=== PATIENT | male | born 1985 | race Caucasian/White ===

== ENCOUNTER → 2018-12-16 08:59 | Outpatient (CLI) | payer MEDICAID, SELFPAY ==
[2018-12-16 10:08] LABS: Glucose 75GTT - Fasting 97 mg/dL (70-99)
[2018-12-16 10:15] LABS: Vitamin D,25 Hydroxy 32.4 ng/mL (29.95-100.01)
[2018-12-16 10:16] LABS: Ferritin 101 ng/mL (26-388); T4 Free Direct 0.94 ng/dL (0.76-1.46); Thyroid Stim Hormone (TSH) 2.74 uIU/mL (0.358-3.74)
[2018-12-16 10:24] LABS: Insulin 75GTT - Fasting 9.8 mU/L (2.6-37.6)
[2018-12-16 11:10] LABS: Glucose 75GTT - 30 minutes 138 mg/dL (100-160)
[2018-12-16 11:12] LABS: Glucose 75GTT - 60 minutes 132 mg/dL (100-160)
[2018-12-16 11:16] LABS: Insulin 75GTT - 60 min 70.4 mU/L (Not Estab)
[2018-12-16 11:18] LABS: Insulin 75GTT - 30 MIN 63.4 mU/L (Not Estab.)
[2018-12-16 12:13] LABS: Glucose 75GTT - 120 minutes 121 mg/dL (70-140)
[2018-12-16 12:18] LABS: Insulin 75GTT - 120 min 41.6 mU/L (Not Estab.)
[2018-12-17 09:26] LABS: Sex Hormone-binding Globulin 20.8 nmol/L (16.5-55.9)
== END ==
PROVIDERS: Family Provider Family Medicine; PCP Family Medicine; Referring Provider Obstetrics & Gynecology; Visit Provider Obstetrics & Gynecology
DX: E29.1 Testicular hypofunction (principal)
CPT/HCPCS: 36415; 82306; 82533; 82728; 82951; 82952; 83525; 84146; 84270; 84403; 84439; 84443

== ENCOUNTER → 2019-01-13 15:51 | Outpatient (CLI) | payer MEDICAID, SELFPAY ==
[2019-01-13 17:08] LABS: Hematocrit 38.7 % (40-54); Hemoglobin 12.9 g/dL (13.0-16.5); Mean Corp Hgb Conc 33.3 g/dL (32-36); Mean Corpuscular Hgb 29.6 pg (27.0-32.0); Mean Corpuscular Volume 88.8 fL (80-94); Platelet Count 212 K/mm3 (150-450); RBC Distribution Width CV 12.9 % (11.6-14.6); Red Blood Count 4.36 M/mm3 (4.6-6.2); White Blood Count 7.5 K/mm3 (4.4-11.0)
[2019-01-13 17:19] LABS: Estradiol 22.8 pg/mL
[2019-01-14 10:23] LABS: Absolute Lymphocyte Count 2.07 X10^3/uL (0.83-4.51); Absolute Neutrophil Count 4.6 X10^3/uL (2.0-7.7); Basophil# 0.03 X10^3/uL; Basophil% 0.4 % (0-1); Eosinophil# 0.14 X10^3/uL; Eosinophils% 1.9 % (0-5); Lymphocyte # 2.07 X10^3/ul (4.0); Lymphocyte % 27.8 % (19-41); Monocyte# 0.64 X10^3/uL; Monocyte% 8.6 % (0-10); NRBC Flagged by Analyzer 0 % (0-5); Neutrophil # 4.55 X10^3/uL (2.7-7.7)
[2019-01-14 16:13] LABS: ALB/GLOB Ratio 1.3 RATIO (0.9-2.4); AST(SGOT) 27 U/L (15-37); Alanine Aminotransfer ALT/SGPT 27 U/L (16-61); Albumin, Serum 3.9 g/dL (3.2-5.0); Alkaline Phosphatase 52 U/L (45-117); Anion Gap 2 (5-15); BUN 16 mg/dL (7-18); Calcium,Total 8.7 mg/dL (8.5-10.1); Chloride 109 mmol/L (98-107); Creatinine, Serum 1.07 mg/dL (0.70-1.30); EST Glomerular Filtration Rate 84 mL/min (>60); Est Glom Filt Rate - Afr Amer 101 mL/min (>60); Globulin 3.1 g/dL (2.2-4.2); Glucose 93 mg/dL (74-106); Sodium Level 140 mmol/L (136-145)
== END ==
PROVIDERS: Visit Provider Obstetrics & Gynecology
DX: E29.1 Testicular hypofunction (principal)
CPT/HCPCS: 36415; 80053; 82670; 85025; 85027

== ENCOUNTER → 2020-03-24 09:40 | Outpatient (CLI) | payer MEDICAID, SELFPAY ==
[2020-03-22 18:12] LABS: BUN 17 mg/dL (7-18); Creatinine, Serum 1.05 mg/dL (0.70-1.30); EST Glomerular Filtration Rate 85 mL/min (>60); Est Glom Filt Rate - Afr Amer 103 mL/min (>60)
--- NOTE | 2020-03-24 09:46 | MRI_ITS ---
STUDY: MRI BRAIN WITH AND WITHOUT CONTRAST (ATTENTION INTERNAL AUDITORY CANALS - I.A.C.''s) REASON FOR EXAM: Male, 35 years old. hearing loss right ear, tinnitus TECHNIQUE: Standardized multiplanar fat and water weighted pulse sequences were obtained. IV 17ml Dotarem was administered for the contrast portion of the examination. COMPARISON: None. FINDINGS: Normal bilateral temporal bones. Normal bilateral internal auditory canals. 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 Differential diagnosis includes vestibular schwannoma, meningioma ependymoma. Hhere is no enhancement of the bilateral VIIth or VIIIth cranial nerves. Normal bilateral cochlea, vestibules and semicircular canals. Normal size of the ventricles and extra-axial spaces for the patient''s age. Normal white matter tracts of the supratentorial brain. There is no evidence for recent intracranial ischemia or other cause of cytotoxic edema on diffusion weighted imaging (DWI). Normal bilateral basal ganglia. Normal thalami. Normal flow voids within the major intracranial circulation suggesting patency by spin echo criteria. Normal venous enhancement. There is no enhancing intra-axial or extra-axial abnormality. There is no extra-axial fluid accumulation. Normal sella turcica, pituitary gland, infundibular stalk, optic chiasm and hypothalamus. Normal tectal plate and pineal gland. Normal midbrain, romel and medulla. Normal cerebellum. Normal basal cisterns. No demonstrated orbital abnormality, within the constraints of a routine brain study. Normal visualized paranasal sinuses. Normal calvarium and skull base. Normal visualized soft tissue structures. Normal visualized upper cervical spine. 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 An with mass effect on the right hemisphere of the cerebellum, right side of the brainstem including the origin of the right 5th cranial nerves. Differential diagnosis includes vestibular schwannoma (acoustic neuroma), meningioma, or ependymoma. Electronically Signed: Inocente Palacios MD at 11:42 EDT Tel , Service support ,
== END ==
PROVIDERS: PCP Family Medicine; Referring Provider Otolaryngology; Visit Provider Otolaryngology
DX: H90.41 Sensorineural hearing loss, unilateral, right ear, with unrestricted hearing on the contralateral side (principal)
CPT/HCPCS: 36415; 70553; 82565; 84520; A9575

== ENCOUNTER → 2020-05-30 17:24 | Outpatient (CLI) | payer MEDICAID, SELFPAY | PROVIDERS: PCP Family Medicine | DX: Z01.818 Encounter for other preprocedural examination (principal) | CPT/HCPCS: 87635; C9803; U0005; U0003 ==

== ENCOUNTER 2020-06-21 15:28 | Outpatient (RCR) | payer MEDICAID, SELFPAY ==
--- NOTE | 2020-06-21 16:20 | HP.PTEVAL ---
Patient's Visit Information YANELY EVERETT II is a 35 year old M referred to Physical Therapy by SAAD ANDERSON with a diagnosis of Vestibular Schwannoma removal. Date of Evaluation: 06/21/20 Physical Therapist: Lonny Mcgraw, NIKKO, OCS, CSCS - Visit Plan Frequency: 1x/Week Duration: 4 Weeks Plan: weekly as needed x4 for. 1. habituationa nd adaptation ex progression. 2. Functional ex progression(head movements with bending for work. Next session: likely VOR x2 progression to busy visual environment and functional balance with head mvoements(burpees) - Subjective Had a auditory removed on June 06. Due to mouth pain and ringing in ears, lethargy. Since then has some slight dizzyness and unsteadiness. No falls. No AD needed. No other symptoms anymore. Has deafness in R ear from the surgery. Just some pressure adn mild S[place]O intermittently more at night when he gets tired. Not sleeping great, hard time falling asleep. Dizzyness comes adn goes with head movements especially rapid. 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 Doing basic ADLs without much problem. Has baby that he is avoiding at times due to incision in tummy to graft to removal site adn that has been slow to heal. Nervous to lift and turn. No real hobbies. - Objective Oculomotor: no nystagmus with gaze or head shake. - skew eye deviation, - ocular tilt. Pursuit adn saccdes normal and asymptomatic. VOR horiz 30 sec gives 3/10 for 5 seconds. VOR vertical 30 sec gives 4/10 for 5 seconds. MSQ OK all movements except head nods adn turns give slight catch up time. Balance is good and functional on firm flat surface. VOR walking is safe. Bend and touch floor adn walk is safe and easy adn asymptomatic. Extremity ROM WFL. - Balance Scores Functional Gait Assessment Score: 30 % Disability: 0 CATSIB Score (Max score 120 seconds): 120 - Goals Goal 1:: Pt feel 100% back to normal with dizzyness and balance Goal Time Frame: 2-4 Weeks Goal 2:: Ready to return to work Goal Time Frame: 2-4 Weeks Goal 3:: Able to lift adn carry baby safely Goal Time Frame: 2-4 Weeks Goal 4:: <3 score on DHI Goal Time Frame: 2-4 Weeks - Rehabilitation Potential Physical Therapy Diagnosis: Vest deficits form surgery Rehabilitation Potential: Good - Anticipated Interventions Patient/Client Instruction: Educate patient on: Condition, Plan of Care For the Purpose of:: To increase tolerance to activity/condition/position, To improve gait and locomotor functions Therapeutic Exercise to Include: Strength training Comment: vestibular ex. fucntion ex For the Purpose of:: To increase tolerance to activity/condition/position, To improve ability of physical actions for home/community/work/leisure Thank you for the opportunity to evaluate your patient. For Medicare and Medicare HMO plans, please review the plan of care and approve it. It will need to be FAXED BACK to us at [phone] for Medicare purposes. For Medicare only, by signing this I certify the plan of care. Please let me know if there are questions or concerns regarding this plan of care. Physician Signature: Date:
--- NOTE | 2020-09-28 15:33 | HP.PT.NRP ---
YANELY EVERETT II was seen in my office for initial evaluation on 06/21/20. The following Plan of Care was established for this patient: Initial Frequency: 1x/Week Initial Duration: 4 Weeks Patient/Client Instruction: Educate patient on: Condition, Plan of Care For the Purpose of:: To increase tolerance to activity/condition/position, To improve gait and locomotor functions Therapeutic Exercise to Include: Strength training For the Purpose of:: To increase tolerance to activity/condition/position, To improve ability of physical actions for home/community/work/leisure This patient was last seen in our office 06/21/20. Pertinent comments regarding their Physical therapy will appear below: Pt seen for initial eval adn POC established. Pt cancelled next 5 visits. at this point, it has been over two months adn I will disocntinue due to nonattendance. At this point I will be discontinuing this patient from physical therapy. I would be happy to see this patient again in the future if found appropriate by the physician. Thank you! Lonny Mcgraw, DPT, OCS, CSCS
== END 2020-06-21 19:00 | disposition home or self-care (01) ==
LOC: PT 15:28
PROVIDERS: PCP Family Medicine
DX: H90.41 Sensorineural hearing loss, unilateral, right ear, with unrestricted hearing on the contralateral side (principal); D33.3 Benign neoplasm of cranial nerves; H93.291 Other abnormal auditory perceptions, right ear
CPT/HCPCS: 97110; 97162

== ENCOUNTER → 2023-09-23 | Outpatient (CLI) | payer MEDICAID, SELFPAY ==
[2023-09-23 14:13] LABS: Free T3 2.9 pg/mL (2.18-3.98); Glucose 104 mg/dL (74-106); Prolactin 4.8 ng/mL; T4 Free Direct 0.98 ng/dL (0.76-1.46); Thyroid Stim Hormone (TSH) 1.84 uIU/mL (0.358-3.74)
[2023-09-23 14:56] LABS: Hemoglobin A1c 5.4 % (3.8-5.6)
[2023-09-24 09:24] LABS: T3 Total - Triiodothyronine 1.29 ng/mL (0.6-1.81); Vitamin D,25 Hydroxy 58.5 ng/mL
[2023-09-25 16:09] LABS: Insulin Level 15.3 uIU/mL (2.6-24.9)
[2023-09-28 16:09] LABS: Testosterone, % Free 3.25 % (1.50-4.20); Testosterone, Free 11.41 ng/dL (5.00-21.00); Testosterone, Total 351 ng/dL (264-916)
== END | disposition home or self-care (01) ==
PROVIDERS: Referring Provider Obstetrics & Gynecology; Visit Provider Obstetrics & Gynecology
DX: R73.03 Prediabetes (principal); E55.9 Vitamin D deficiency, unspecified; R79.89 Other specified abnormal findings of blood chemistry
CPT/HCPCS: 36415; 82306; 82947; 83036; 83525; 84146; 84402; 84403; 84439; 84443; 84480; 84481

== ENCOUNTER → 2024-04-20 | Outpatient (CLI) | payer MEDICAID, SELFPAY ==
[2024-04-20 12:16] LABS: Absolute Lymphocyte Count 2.07 X10^3/uL (0.83-4.51); Basophil# 0.03 X10^3/uL; Basophil% 0.4 % (0-1); Eosinophil# 0.09 X10^3/uL; Eosinophils% 1.3 % (0-5); Hemoglobin 14.7 g/dL (13.0-16.5); Lymphocyte # 2.07 X10^3/ul (0.83-4.51); Lymphocyte % 30.3 % (19-41); Mean Corp Hgb Conc 33.4 g/dL (32-36); Mean Corpuscular Hgb 29.1 pg (27.0-32.0); Mean Platelet Vol. 10.7 fl (6.2-12.0); Monocyte% 8.8 % (0-10); NRBC Flagged by Analyzer 0 % (0-5); Neutrophil # 4.01 X10^3/uL (2.7-7.7); Neutrophil % 58.8 % (47-70); Platelet Count 265 K/mm3 (150-450); RBC Distribution Width CV 12.7 % (11.6-14.6); RBC Distribution Width SD 40.3 fl (35.1-43.9); Red Blood Count 5.06 M/mm3 (4.6-6.2); White Blood Count 6.8 K/mm3 (4.4-11.0)
[2024-04-20 12:44] LABS: Vitamin D,25 Hydroxy 45.8 ng/mL
[2024-04-20 13:49] LABS: ALB/GLOB Ratio 1.2 RATIO (0.9-2.4); AST(SGOT) 23 U/L (15-37); Alanine Aminotransfer ALT/SGPT 25 U/L (16-61); Albumin, Serum 4.1 g/dL (3.2-5.0); Alkaline Phosphatase 57 U/L (45-117); Anion Gap 7 (5-15); BUN 17 mg/dL (7-18); BUN/Creat Ratio 15.7 RATIO (10-20); Calcium,Total 9.3 mg/dL (8.5-10.1); Chloride 104 mmol/L (98-107); Cholesterol 210 mg/dL (200); Creatinine, Serum 1.08 mg/dL (0.70-1.30); EST Glomerular Filtration Rate 80 mL/min (>60); Est Glom Filt Rate - Afr Amer 97 mL/min (>60); Globulin 3.5 g/dL (2.2-4.2); Glucose 106 mg/dL (74-106); High Density Lipoprotein 44 mg/dL; Potassium 4.3 mmol/L (3.5-5.1); Protein, Total 7.6 g/dL (6.4-8.2); Sodium Level 137 mmol/L (136-145); Triglycerides 77 mg/dL; Very Low Density Lipoprotein 15 mg/dL (5-40)
== END | disposition home or self-care (01) ==
LOC: BIMLAB 09:53
PROVIDERS: PCP Internal Medicine; Referring Provider Internal Medicine; Visit Provider Internal Medicine
DX: Z13.6 Encounter for screening for cardiovascular disorders (principal); F41.9 Anxiety disorder, unspecified; F32.A Depression, unspecified; G47.9 Sleep disorder, unspecified
CPT/HCPCS: 36415; 80053; 80061; 82306; 84443; 85025